=== PATIENT | female | born 2000 | race Two or more races ===

== ENCOUNTER → 2020-06-02 12:57 | Outpatient (BNVA) | payer MEDICAID, SELFPAY | PROVIDERS: PCP Pediatrics; Referring Provider Pediatrics; Visit Provider Obstetrics & Gynecology | DX: Z76.89 Persons encountering health services in other specified circumstances (principal) ==

== ENCOUNTER 2020-06-02 13:40 | Emergency (ER) | payer MEDICAID, SELFPAY ==
[2020-06-02 13:59] VITALS: BP 126/77; PULSE 72; RESP 16; TEMP 36.7; O2SAT 100; BMI 36.6
[2020-06-02 14:00] VITALS: BP 122/69; PULSE 62; RESP 14; O2SAT 100
--- NOTE | 2020-06-02 14:37 | US_ITS ---
EXAMINATION: US OBSTETRICAL ULTRASOUND CLINICAL INFORMATION: Vaginal bleeding. Early . COMPARISON: Obstetrical ultrasound 04/18/2020. TECHNIQUE: Ultrasound of the maternal pelvis is performed using transabdominal transducer. M-mode Doppler is also performed. Patient declined imaging with transvaginal transducer. FINDINGS: There is a single intrauterine gestational sac with visible embryo. Spontaneous motion demonstrated. Normal uniform posterior placenta. No visible placental hemorrhage/hematoma. cardiac activity 146 bpm. MATERNAL ADNEXA: The right maternal ovary measures 3.1 x 2.1 x 2.4 cm. The left maternal ovary measures 3.0 x 1.9 x 2.1 cm. No adnexal mass. No maternal pelvic ascites. US/US OB limited IMPRESSION: 1. Single intrauterine gestation with unremarkable posterior placenta. No hematoma. 2. Spontaneous motion. cardiac activity 146 beats per minute. 3. No maternal adnexal mass or pelvic ascites.
--- NOTE | 2020-06-02 14:39 | ED_ITS ---
HPI - General Chief complaint: Vaginal Bleeding Stated complaint: spotting - 13wks preg Time Seen by Provider: 06/02/20 14:08 Source: patient Mode of arrival: ambulatory Limitations: no limitations History of Present Illness HPI Narrative: patient comes to the emergency room complaining vaginal spotting. Patient states she is a at 13 weeks and half of gestational age. Patient states last night she noticed vaginal spotting which continued until this morning. Patient denies any recent sexual activity. Patient complaining mild cramping this morning which self-resolved. Patient was supposed to have an OB appointment today, however, she did not have an OB intake prior to this visit, therefore she was not seen in her office visit was postponed. Related Data Allergies Allergy/AdvReac Type Severity Reaction Status Date / Time No Known Allergies Allergy Verified 06/02/20 13:59 [No Known Allergies*] Review of Systems Review of Systems: Constitutional : No Weight loss, No Fever, No Chills, No Night Sweats, No Fatigue, No Malaise ENT/Mouth : No Hearing loss, No Ear Pain, No Nasal Congestion, No Sinus Pain, No Hoarseness, No sore throat, No Rhinorrhea, No Swallowing Difficulty Eyes: No Eye Pain, No Swelling, No Redness, No Foreign Body, No Discharge, No Vision Changes Cardiovascular : No Chest Pain, No SOB, No Dyspnea on Exertion, No Orthopnea, No Edema, No Palpitations Respiratory : No Cough, No Sputum, No Wheezing, No Smoke Exposure, No Dyspnea Gastrointestinal : One episode of vomiting, No Diarrhea, No Constipation, No abdominal Pain, No Hematochezia, No Melena Genitourinary : vaginal spotting No Dysuria, No Urinary Frequency, No Hematuria, No Urinary Incontinence, No Urgency, No Flank Pain, No Urinary Flow Changes, No Hesitancy Musculoskeletal : No joint pain, No Myalgias, No Joint Swelling Skin : No Skin Lesions, No rash Neuro : No Weakness, No Numbness, No Paresthesias, No Loss of Consciousness, No Dizziness, No Headache Psych : No Anxiety/Panic, No Depression, No SI/HI/AH/VH, No Social Issues, Heme/Lymph: No Bruising, No Bleeding,No Lymphadenopathy Endocrine : No Polyuria, No Polydipsia, No Temperature Intolerance PMFSH Past Medical History Medical History ADHD Asthma Social History Social History (System 05/28/20 @ 08:15 by Marisel Peoples) Smoking Status: Never smoker Use of substances other than those prescribed or required for medical reasons: No Advance Directives: No Advance Directives Information Provided: No Physical Exam Vital Signs: Vital Signs: Vital Signs Temp Pulse Resp BP Pulse Ox 06/02/20 16:00 58 16 113/61 99 06/02/20 14:00 62 14 122/69 100 06/02/20 13:59 98.1 F 72 16 126/77 100 Body Mass Index 36.6 Appearance: Alert. Oriented X3. No acute distress. Eyes: Pupils equal, round and reactive to light. ENT: Pharynx normal. Neck: Normal inspection. Neck supple. No lymph nodes noted. No crepitus CVS: Normal heart rate and rhythm. Pulses normal. Normal S1 and S2 Respiratory: No respiratory distress. Breath sounds normal. No Wheezing. No rales Abdomen: Soft and nontender. No rigidity. No distention. good BS x4 : Cervical exam closed, no blood present Skin: Skin warm and dry. Normal skin color. Normal skin turgor. Extremities: No lower extremity edema. No lower extremity edema. No Lacerations. No Rash Neuro: Oriented X 3. No motor deficit. No sensory deficit. Moving all extermities. No slurred speech. MDM - OB/Uterine Contractions MDM Narrative Medical decision making narrative: I discussed with the patient that given that she had spotting yesterday, this is considered a threatened . Lab Data Result diagrams: 06/02/20 15:22 06/02/20 15:22 Labs: Lab Results 06/02/20 06/02/20 06/02/20 Range/Units 15:22 15:22 15:35 WBC 11.3 H (4.8-10.8) X10*3/uL RBC 4.05 L (4.20-5.50) X10*6/uL Hgb 12.3 (12.0-16.0) g/dl Hct 36.3 L (37-47) % MCV 89.6 (80-98) fL MCH 30.4 (27.0-33.0) pg MCHC 33.9 (31.0-35.0) g/dl RDW 13.1 (11.0-16.0) % Plt Count 280 (160-400) X10*3/uL MPV 10.3 (9.4-12.3) fL Immature Gran % (Auto) 0.5 H (0.0-0.4) % Neut % (Auto) 77.5 H (45-73) % Lymph % (Auto) 13.7 L (20-40) % [place] % (Auto) 4.9 (2-11) % Eos % (Auto) 2.9 (0-4) % Baso % (Auto) 0.5 (0-2) % Lymph # (Auto) 1.6 (1.2-4.9) X10*3/uL [place] # (Auto) 0.6 (0.1-1.2) X10*3/uL Eos # (Auto) 0.3 (0.0-0.4) X10*3/uL Baso # (Auto) 0.1 (0.0-0.2) X10*3/uL Abs Immat Gran (auto) 0.06 H (0.00-0.03) X10*3/uL Absolute Neuts (auto) 8.8 H (2.0-8.3) X10*3/uL Absolute Nucleated RBC 0.000 (0.0-0.012) X10*3/uL Nucleated RBC % (auto) 0.0 (0.0-0.2) /100WBC Sodium 134 L (135-145) mmol/L Potassium 5.1 (3.3-5.1) mmol/l Chloride 104 (96-108) mmol/L Carbon Dioxide 24 (22-29) mmol/L Anion Gap 11 L (12-20) BUN 14 (9-16) mg/dL Creatinine 0.68 (0.5-1.4) mg/dL Estim Creat Clear Calc 137.0 Estimated GFR > 60 Random Glucose 83 (60-115) mg/dL Calcium 8.5 (8.4-10.2) mg/dL Total Bilirubin 0.4 (0.0-1.0) mg/dL Direct Bilirubin < 0.2 (0.0-0.5) mg/dL AST 11 (5-31) U/L ALT 6 (0-31) U/L Alkaline Phosphatase 38 L (39-117) U/L Total Protein 5.9 L (6.5-8.0) g/dL Albumin 3.4 L (3.5-5.0) g/dL Urine Color YELLOW Urine Appearance CLEAR Urine pH 6.0 (5.0-8.0) Ur Specific [place] 1.010 (1.005-1.025) Urine Protein NEG (NEG-TRACE) MG/DL Urine Glucose (UA) NEG (NEG) MG/DL Urine Ketones NEG (NEG) MG/DL Urine Blood NEG (NEG) Urine Nitrite NEG (NEG) Ur Leukocyte Esterase NEG (NEG) Imaging Data US - abdomen: Radiologist's impression: There is a single intrauterine gestational sac with visible embryo. Spontaneous motion demonstrated. Normal uniform posterior placenta. No visible placental hemorrhage/hematoma. cardiac activity 146 bpm. MATERNAL ADNEXA: The right maternal ovary measures 3.1 x 2.1 x 2.4 cm. The left maternal ovary measures 3.0 x 1.9 x 2.1 cm. No adnexal mass. No maternal pelvic ascites. US/US OB limited IMPRESSION: 1. Single intrauterine gestation with unremarkable posterior placenta. No hematoma. 2. Spontaneous motion. cardiac activity 146 beats per minute. 3. No maternal adnexal mass or pelvic ascites. Discharge Plan Discharge Clinical Impression: Threatened Patient Disposition: Home, Self-Care Instructions: Threatened Miscarriage (ED) Additional Instructions: please call OBGYN to schedule an appointment Please follow-up with your primary care physician tomorrow. If you have any worsening or new symptoms, please return to the emergency room or call 911
--- NOTE | 2020-06-02 15:23 | PC.NURSE ---
Bedside ultrasound at this time
--- NOTE | 2020-06-02 15:23 | PC.NURSE ---
No quantatative blood loss at this time to calculate pt just reports pink tinge on sanitary pad this morning
[2020-06-02 15:44] LABS: MANUAL DIFF FLAG NO
[2020-06-02 15:47] LABS: Basophils Absolute Auto 0.1 X10*3/uL (0.0-0.2); Basophils Percent Auto 0.5 % (0-2); Eosinophils Absolute Auto 0.3 X10*3/uL (0.0-0.4); Eosinophils Percent Auto 2.9 % (0-4); Hematocrit 36.3 % (37-47); Hemoglobin 12.3 g/dl (12.0-16.0); Imm Gran Abs Auto 0.06 X10*3/uL (0.00-0.03); Imm Gran Pct Auto 0.5 % (0.0-0.4); Lymphocytes Absolute Auto 1.6 X10*3/uL (1.2-4.9); Lymphocytes Percent Auto 13.7 % (20-40); Mean Corpuscular HGB Conc 33.9 g/dl (31.0-35.0); Mean Corpuscular Hemoglobin 30.4 pg (27.0-33.0); Mean Corpuscular Volume 89.6 fL (80-98); Mean Platelet Volume 10.3 fL (9.4-12.3); Monocytes Absolute Auto 0.6 X10*3/uL (0.1-1.2); Monocytes Percent Auto 4.9 % (2-11); Neutrophils Absolute Auto 8.8 X10*3/uL (2.0-8.3); Neutrophils Percent Auto 77.5 % (45-73); Platelet Count 280 X10*3/uL (160-400); Red Blood Count 4.05 X10*6/uL (4.20-5.50); Red Cell Distribution Width 13.1 % (11.0-16.0); White Blood Count 11.3 X10*3/uL (4.8-10.8)
[2020-06-02 15:50] LABS: Glucose Urine UA NEG (NEG); Leukocyte Esterase Urine NEG (NEG); Nitrite Urine NEG (NEG); Urine Blood NEG (NEG); Urine Ketones NEG (NEG); Urine Protein NEG (NEG-TRACE)
[2020-06-02 15:51] LABS: Appearance Urine CLEAR; Color Urine YELLOW
[2020-06-02 16:00] VITALS: BP 113/61; PULSE 58; RESP 16; O2SAT 99
[2020-06-02 16:19] LABS: Alanine Aminotransferase 6 U/L (0-31); Albumin Level 3.4 g/dL (3.5-5.0); Alkaline Phosphatase 38 U/L (39-117); Anion Gap 11 (12-20); Aspartate Amino Transferase 11 U/L (5-31); Bilirubin Direct < 0.2 mg/dL (0.0-0.5); Bilirubin Total 0.4 mg/dL (0.0-1.0); Blood Urea Nitrogen 14 mg/dL (9-16); Calcium 8.5 mg/dL (8.4-10.2); Carbon Dioxide 24 mmol/L (22-29); Chloride 104 mmol/L (96-108); Estimated Glomerular Filt Rate > 60; Glucose Random 83 mg/dL (60-115); Potassium 5.1 mmol/l (3.3-5.1); Sodium 134 mmol/L (135-145); Total Protein 5.9 g/dL (6.5-8.0)
== END 2020-06-02 17:52 | disposition home or self-care (01) ==
PROVIDERS: Emergency Provider Emergency Medicine; PCP Pediatrics
DX: O20.0 Threatened abortion (principal)
CPT/HCPCS: 36415; 76815; 80048; 80076; 81003; 85025; 99284

== ENCOUNTER → 2020-06-08 13:54 | Outpatient (BNVA) | payer MEDICAID, SELFPAY | PROVIDERS: PCP Pediatrics; Referring Provider Pediatrics | DX: Z76.89 Persons encountering health services in other specified circumstances (principal) ==

== ENCOUNTER 2020-06-11 08:20 | Emergency (ER) | payer MEDICAID, SELFPAY ==
--- NOTE | 2020-06-11 08:31 | ED_ITS ---
HPI - Female Genitourinary General Chief complaint: Vaginal Bleeding Stated complaint: vaginal bleeding 15 weeks Time Seen by Provider: 06/11/20 08:31 Source: patient Mode of arrival: ambulatory Limitations: no limitations History of Present Illness MD elicited complaint: vaginal bleeding Pertinent past history: other (15 weeks ) Onset (ago): minute(s) (20 minutes [employer]) Location of symptoms: pelvis Severity: moderate Quality of pain: other (has no pain) Vaginal bleeding: bright red, clots (2) and # pads per hour (1) Exacerbating factors: none Relieving factors: none Associated symptoms: denies other symptoms Treatment prior to arrival: none Sexual activity: Yes Patient : Yes Related Data : 3 Para: 2 Allergies Allergy/AdvReac Type Severity Reaction Status Date / Time No Known Allergies Allergy Verified 06/02/20 13:59 [No Known Allergies*] Review of Systems Review of Systems: Constitutional : No Fever, No Chills ENT/Mouth : No sore throat, No Rhinorrhea Eyes: No Eye Pain, No Redness Cardiovascular : No Chest Pain, No SOB Respiratory : No Cough, No Sputum, No Wheezing Gastrointestinal : positive Nausea, No Vomiting, No Diarrhea, no abdominal pain, Genitourinary : positive irregular bleeding, No Dysuria, No Urinary Frequency, no pelvic pain Musculoskeletal : No Myalgias Skin : No rash Neuro : No Weakness, No Headache Psych : No Anxiety/Panic, No Depression Heme/Lymph: No bruising, No Lymphadenopathy Endocrine : No Polyuria, No Polydipsia All other systems reviewed and are negative PMFSH Past Medical History Medical History ADHD Asthma Surgical History History of ear surgery : 3 Para: 2 Family History Family History (Updated 06/08/20 @ 14:53 by Sharlene Villasenor LPN) Mother Hx of seizure disorder History of bipolar disorder Father No problems noted. Brother No problems noted. Brother No problems noted. Social History Social History Household Members: Children Smoking Status: Never smoker Smoked in Last 30 Days: No Use of substances other than those prescribed or required for medical reasons: No Substance Use Type: Marijuana Advance Directives: No Advance Directives Information Provided: No Physical Exam 2 Vital Signs: Vital Signs: Last Vital Signs Temp 98.2 F 06/11/20 11:16 Pulse 58 06/11/20 11:16 Resp 16 06/11/20 11:16 BP 107/57 L 06/11/20 11:16 Pulse Ox 100 06/11/20 11:16 Body Mass Index 34.4 Appearance: Alert. Oriented X3. No acute distress. Anxious, tearful Eyes: Pupils equal, round and reactive to light. ENT: Pharynx normal. Neck: Normal inspection. Neck supple. CVS: Normal heart rate and rhythm. Pulses normal. Respiratory: No respiratory distress. Breath sounds normal. Abdomen: Soft and nontender. : brb via cervix, manual exam open to fingertip, scant blood on pad Skin: Skin warm and dry. Normal skin color. Normal skin turgor. Extremities: No lower extremity edema. No calf ttp Neuro: Oriented X 3. No motor deficit. No sensory deficit. Course Course Course Narrative: patient delay in US no significant bleeding, delay in US due to no official read, O POS bleeding has resolved, patient given US findings, told to do pelvic rest no heavy lifting, no intercourse needs to see OB, Dr. Solis aware will follow up with outpatient MDM - Female Genitourinary MDM Narrative Medical decision making narrative: 19 yo female 15 weeks here with vaginal bleeding has no cramping, will need labs, Rh status, IVF, US to evaluate , she is seen by our midwives Lab Data Result diagrams: 06/11/20 09:13 06/11/20 11:23 Labs: Lab Results 06/11/20 06/11/20 06/11/20 Range/Units 09:13 09:13 09:13 WBC 12.4 H (4.8-10.8) X10*3/uL RBC 4.10 L (4.20-5.50) X10*6/uL Hgb 12.6 (12.0-16.0) g/dl Hct 37.5 (37-47) % MCV 91.5 (80-98) fL MCH 30.7 (27.0-33.0) pg MCHC 33.6 (31.0-35.0) g/dl RDW 13.4 (11.0-16.0) % Plt Count 279 (160-400) X10*3/uL MPV 10.2 (9.4-12.3) fL Immature Gran % (Auto) 1.0 H (0.0-0.4) % Neut % (Auto) 72.6 (45-73) % Lymph % (Auto) 16.0 L (20-40) % [place] % (Auto) 5.6 (2-11) % Eos % (Auto) 4.2 H (0-4) % Baso % (Auto) 0.6 (0-2) % Lymph # (Auto) 2.0 (1.2-4.9) X10*3/uL [place] # (Auto) 0.7 (0.1-1.2) X10*3/uL Eos # (Auto) 0.5 H (0.0-0.4) X10*3/uL Baso # (Auto) 0.1 (0.0-0.2) X10*3/uL Abs Immat Gran (auto) 0.12 H (0.00-0.03) X10*3/uL Absolute Neuts (auto) 9.0 H (2.0-8.3) X10*3/uL Absolute Nucleated RBC 0.000 (0.0-0.012) X10*3/uL Nucleated RBC % (auto) 0.0 (0.0-0.2) /100WBC PT 10.4 L (10.8-13.0) SEC INR 0.9 (0.9-1.1) APTT 32.8 (24.1-38.0) SEC Sodium Cancelled Potassium Cancelled Chloride Cancelled Carbon Dioxide Cancelled Anion Gap Cancelled BUN Cancelled Creatinine Cancelled Estim Creat Clear Calc Cancelled Estimated GFR Cancelled Random Glucose Cancelled Calcium Cancelled Total Bilirubin Cancelled Direct Bilirubin Cancelled AST Cancelled ALT Cancelled Alkaline Phosphatase Cancelled Total Protein Cancelled Albumin Cancelled Beta HCG, Quant Cancelled 06/11/20 06/11/20 Range/Units 11:23 11:23 WBC (4.8-10.8) X10*3/uL RBC (4.20-5.50) X10*6/uL Hgb (12.0-16.0) g/dl Hct (37-47) % MCV (80-98) fL MCH (27.0-33.0) pg MCHC (31.0-35.0) g/dl RDW (11.0-16.0) % Plt Count (160-400) X10*3/uL MPV (9.4-12.3) fL Immature Gran % (Auto) (0.0-0.4) % Neut % (Auto) (45-73) % Lymph % (Auto) (20-40) % [place] % (Auto) (2-11) % Eos % (Auto) (0-4) % Baso % (Auto) (0-2) % Lymph # (Auto) (1.2-4.9) X10*3/uL [place] # (Auto) (0.1-1.2) X10*3/uL Eos # (Auto) (0.0-0.4) X10*3/uL Baso # (Auto) (0.0-0.2) X10*3/uL Abs Immat Gran (auto) (0.00-0.03) X10*3/uL Absolute Neuts (auto) (2.0-8.3) X10*3/uL Absolute Nucleated RBC (0.0-0.012) X10*3/uL Nucleated RBC % (auto) (0.0-0.2) /100WBC PT (10.8-13.0) SEC INR (0.9-1.1) APTT (24.1-38.0) SEC Sodium 136 Potassium 4.7 Chloride 105 Carbon Dioxide 25 Anion Gap 11 L BUN 11 Creatinine 0.69 Estim Creat Clear Calc 140.9 Estimated GFR > 60 Random Glucose 78 Calcium 7.5 L D Total Bilirubin 0.2 Direct Bilirubin < 0.2 AST 11 ALT < 6 Alkaline Phosphatase 40 Total Protein 5.6 L Albumin 3.2 L Beta HCG, Quant [id number] Discharge Plan Discharge Clinical Impression: Vaginal bleeding Placenta previa Qualifiers: Trimester: second trimester Qualified Code(s): O44.02 - Complete placenta previa NOS or without hemorrhage, second trimester Patient Disposition: Home, Self-Care Instructions: Placenta Previa (ED) Additional Instructions: return to ED for any worsening symptoms or concerns PELVIC REST, NO HEAVY LIFTING OVER 10LBS UNTIL RELEASED, NO SEXUAL INTERCOURSE OF VAGINAL PENETRATION UNTIL RELEASED BY YOUR OBGYN Referrals: Ciera Fisher CNM [Certified Nurse Drum Operator] - 1 day (CALL SATURDAY TO FOLLOW UP)
--- NOTE | 2020-06-11 08:54 | US_ITS ---
EXAMINATION: US , GREATER THAN 14 WEEKS CLINICAL INFORMATION: 15 weeks . Vaginal bleeding COMPARISON: Report of a study 06/02/20 TECHNIQUE: Transcutaneous limited obstetrical ultrasound. FINDINGS: There is a live single intrauterine gestation in variable but predominantly breech presentation. There is normal amniotic fluid volume. The gestational sac contour is smooth. Cardiac activity was present. Somatic activity was present. There is no suspicious abnormality in the region of the cervix. The cervix measures approximately 3.6 cm. The uterine contour is smooth. The placenta is posterior. The placenta extends close to the internal cervical os. There are some anechoic spaces related to the lower margin of the placenta. On the cine loop recording there appears to be mobile echoes suggesting slow flowing blood. No focal abnormality of the myometrium. No large adnexal mass. The right ovary measures approximately 2.5 x 1.3 x 2.0 cm. The left ovary measures approximately 2.2 x 1.7 x 1.8 cm. Measurements include: biometrics were not performed survey was not performed The best estimated gestational age is 15 weeks 0 days based upon previous dating. This yields an EDC of 12/03/20 cardiac activity was regular at 147 bpm. There is no significant free pelvic fluid. US/US OB limited IMPRESSION: There is a live single intrauterine gestation. The best estimated gestational age based on previous dating is 15 weeks 0 days. The lower placental margin appears hypervascular and extends close to the internal cervical os. There is no localized retroplacental collection or fluid within the cervical canal. The patient should be managed on the basis of the clinical exam and history. Depending upon clinical circumstances a short interval follow-up including transvaginal assessment of the placental margin should be considered.
[2020-06-11 09:07] VITALS: BP 119/73; PULSE 59; RESP 18; TEMP 36.7; O2SAT 100; BMI 34.4
[2020-06-11] MEDS: 0.9 % Sodium Chloride 1,000 ML 999 ML IVCONT (09:15)
[2020-06-11 09:19] LABS: Basophils Absolute Auto 0.1 X10*3/uL (0.0-0.2); Basophils Percent Auto 0.6 % (0-2); Eosinophils Absolute Auto 0.5 X10*3/uL (0.0-0.4); Eosinophils Percent Auto 4.2 % (0-4); Hematocrit 37.5 % (37-47); Hemoglobin 12.6 g/dl (12.0-16.0); Imm Gran Abs Auto 0.12 X10*3/uL (0.00-0.03); MANUAL DIFF FLAG NO; Mean Corpuscular HGB Conc 33.6 g/dl (31.0-35.0); Mean Corpuscular Hemoglobin 30.7 pg (27.0-33.0); Mean Corpuscular Volume 91.5 fL (80-98); Mean Platelet Volume 10.2 fL (9.4-12.3); Monocytes Absolute Auto 0.7 X10*3/uL (0.1-1.2); Monocytes Percent Auto 5.6 % (2-11); Neutrophils Percent Auto 72.6 % (45-73); Platelet Count 279 X10*3/uL (160-400); Red Cell Distribution Width 13.4 % (11.0-16.0); White Blood Count 12.4 X10*3/uL (4.8-10.8)
[2020-06-11 09:29] LABS: INTERNATIONAL NORM RATIO 0.9 (0.9-1.1); Prothrombin Time 10.4 SEC (10.8-13.0)
[2020-06-11 09:31] LABS: Partial Thromboplastin Time 32.8 SEC (24.1-38.0)
[2020-06-11 10:14] VITALS: BP 108/45; PULSE 60
--- NOTE | 2020-06-11 10:15 | PC.NURSE ---
PT MOVED FROM BED 19 TO BED 7 AFTER US
[2020-06-11 11:16] VITALS: BP 107/57; PULSE 58; RESP 16; TEMP 36.8; O2SAT 100
--- NOTE | 2020-06-11 11:18 | PC.NURSE ---
Pt calm and cooperative. Panaca,warn, and dry. VSS. DEnies pain. She reports feeling slightly dizzy at times since but denies dizziness at present. Instructed to call if she needs to get OOB. IVF administered. Labs re-drawn due tp hemolizations
[2020-06-11 11:58] LABS: Anion Gap 11 (12-20); Blood Urea Nitrogen 11 mg/dL (9-16); Calcium 7.5 mg/dL (8.4-10.2); Carbon Dioxide 25 mmol/L (22-29); Chloride 105 mmol/L (96-108); Creatinine Clr Calc Pharmacy 140.9; Estimated Glomerular Filt Rate > 60; Glucose Random 78 mg/dL (60-115); Potassium 4.7 mmol/l (3.3-5.1); Sodium 136 mmol/L (135-145)
[2020-06-11 12:04] LABS: Alanine Aminotransferase < 6 U/L (0-31); Albumin Level 3.2 g/dL (3.5-5.0); Alkaline Phosphatase 40 U/L (39-117); Aspartate Amino Transferase 11 U/L (5-31); Bilirubin Direct < 0.2 mg/dL (0.0-0.5); Bilirubin Total 0.2 mg/dL (0.0-1.0); Total Protein 5.6 g/dL (6.5-8.0)
[2020-06-11 12:41] LABS: HCG Quantitative 31903 mIU/mL
[2020-06-11 13:08] VITALS: BP 116/62; PULSE 61; RESP 17; O2SAT 100
== END 2020-06-11 13:14 | disposition home or self-care (01) ==
PROVIDERS: Emergency Provider Emergency Medicine
DX: O44.02 Complete placenta previa NOS or without hemorrhage, second trimester (principal); Z3A.15 15 weeks gestation of pregnancy
CPT/HCPCS: 36415; 76815; 80048; 80076; 84702; 85025; 85610; 85730; 86900; 86901; 96360; 99284

== ENCOUNTER 2020-06-15 13:11 | Outpatient (REF) | payer MEDICAID, SELFPAY ==
[2020-06-15 16:09] LABS: MANUAL DIFF FLAG NO
[2020-06-15 16:15] LABS: Basophils Absolute Auto 0.1 X10*3/uL (0.0-0.2); Basophils Percent Auto 0.4 % (0-2); Eosinophils Absolute Auto 0.4 X10*3/uL (0.0-0.4); Eosinophils Percent Auto 3.2 % (0-4); Hematocrit 34.1 % (37-47); Hemoglobin 11.6 g/dl (12.0-16.0); Imm Gran Abs Auto 0.08 X10*3/uL (0.00-0.03); Imm Gran Pct Auto 0.7 % (0.0-0.4); Lymphocytes Absolute Auto 1.3 X10*3/uL (1.2-4.9); Lymphocytes Percent Auto 11.4 % (20-40); Mean Corpuscular Hemoglobin 30.7 pg (27.0-33.0); Mean Corpuscular Volume 90.2 fL (80-98); Mean Platelet Volume 10.9 fL (9.4-12.3); Monocytes Absolute Auto 0.7 X10*3/uL (0.1-1.2); Monocytes Percent Auto 6.4 % (2-11); Neutrophils Absolute Auto 8.9 X10*3/uL (2.0-8.3); Neutrophils Percent Auto 77.9 % (45-73); Platelet Count 270 X10*3/uL (160-400); Red Blood Count 3.78 X10*6/uL (4.20-5.50); Red Cell Distribution Width 13.8 % (11.0-16.0); White Blood Count 11.4 X10*3/uL (4.8-10.8)
[2020-06-15 16:45] LABS: Amphetamine Screen Urine Not Detected (Not Detect); Barbiturates, Urine Not Detected (Not Detect); Benzodiazepines Screen Urine Not Detected (Not Detect); Cannabinoid Screen Urine POSITIVE (Not Detect); Cocaine Screen Urine Not Detected (Not Detect); Opiate Screen Urine Not Detected (Not Detect); Phencyclidine Screen Urine Not Detected (Not Detect)
[2020-06-15 17:03] LABS: Syphilis Screen Nonreactive (Nonreactive)
[2020-06-16 08:39] LABS: HBsAGNum1 0.62 S/CO (0.00-0.99); Hepatitis B Surface Antigen Negative (Negative); ~HepC Num1 0.09 S/CO (0.00-0.79); ~Hepatitis C Antibody Nonreactive (Nonreactive)
[2020-06-16 09:00] LABS: HIV AB/AG Nonreactive (Nonreactive); HIV Num 1 0.08 S/CO (0.00-0.99)
[2020-06-16 09:37] LABS: Rubella IgG Antibody 1.85 index
== END 2020-06-15 13:12 | disposition home or self-care (01) ==
LOC: HO.LAB 13:11
PROVIDERS: Referring Provider Advanced Practice Midwife; Visit Provider Advanced Practice Midwife
DX: O44.02 Complete placenta previa NOS or without hemorrhage, second trimester (principal); Z3A.15 15 weeks gestation of pregnancy
CPT/HCPCS: 36415; 80307; 85025; 86762; 86780; 86787; 86803; 86850; 86900; 86901; 87086; 87340; 87389

== ENCOUNTER 2020-06-15 17:12 | Outpatient (REF) | payer MEDICAID, SELFPAY ==
[2020-06-16 03:01] LABS: CT PCR NOT DETECTED (Not Detect.); NG PCR NOT DETECTED (Not Detect.)
[2020-06-16 08:19] LABS: BV Int Neg Control Negative (Negative); BV Int Pos Control Positive (Positive)
== END 2020-06-15 17:13 | disposition home or self-care (01) ==
LOC: HO.LNP 17:12
PROVIDERS: Visit Provider Advanced Practice Midwife
DX: O44.00 Complete placenta previa NOS or without hemorrhage, unspecified trimester (principal)
CPT/HCPCS: 87480; 87491; 87510; 87591; 87660

== ENCOUNTER 2020-06-24 13:54 | Outpatient (REF) | payer MEDICAID, SELFPAY ==
--- NOTE | 2020-06-24 14:03 | US_ITS ---
EXAMINATION: OBSTETRICAL ULTRASOUND, Follow up HISTORY: 19-year-old at the 16.6 weeks of gestation Rule out placenta previa COMPARISON: 06/11/2020 TECHNIQUE: Real time transabdominal imaging with color and M-mode Doppler. Transvaginal ultrasound was performed using an endovaginal probe. PRESENTATION: Vertex PLACENTA LOCATION: Posterior without previa AMNIOTIC FLUID: Normal MEASUREMENTS: 1. Biparietal Diameter: 3.6 cm; 17.0 wks 2. Head Circumference: 13.5 cm; 17.0 wks 3. Abdominal Circumference: 11.1 cm; 17.0 wks 4. Femur Length: 2.4 cm; 17.2 wks 5. Heart Rate: 149 beats per minute WEIGHT: Estimated weight is 180 grams (0 lbs 6 oz) -- 57 %. survey was not attempted due to early gestational age. The gender is female. Patient is aware. 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 Placenta is 4.3 cm away from the internal os. GESTATIONAL AGE: 1. Established GA: 16.6 wks 2. GA from AUA: 17.1 wks ESTIMATED DATE OF DELIVERY: 1. Established SHIRA: 12/03/2020 2. SHIRA from AUA: 12/01/2020 US/US OB transvaginal IMPRESSION: 1. A single fetus with appropriate interval growth. 2. The placenta is posterior without evidence of previa. The inferior edge is 4.3 cm away from the internal loss. 3. Uterine synechiae in the lower segment close to the cervix. I reviewed today's ultrasound findings and gave her reassurance. There is no evidence of placenta previa. In addition I have informed her that the placenta will not migrate down toward the cervix during . If anything we will continue to move further away from the cervix. She had light spotting in early June. Currently denies vaginal bleeding or contractions. Uterine synechiae was noted in the lower uterine segment near the cervix. This is been associated with benign obstetrical outcome. RECOMMENDATIONS: 1. She is to follow-up in approximately 3 weeks for survey (scheduled). Thank you very much for this referral. Visiting time 20 minutes. Majority of this visit was spent reviewing the ultrasound findings as well as her care.
== END 2020-06-24 13:55 | disposition home or self-care (01) ==
LOC: HO.US 13:54
PROVIDERS: PCP Pediatrics; Visit Provider Advanced Practice Midwife
DX: O44.00 Complete placenta previa NOS or without hemorrhage, unspecified trimester (principal); Z3A.00 Weeks of gestation of pregnancy not specified
CPT/HCPCS: 76816; 76817

== ENCOUNTER → 2020-07-22 14:02 | Outpatient (BNVA) | payer MEDICAID, SELFPAY | PROVIDERS: Visit Provider Advanced Practice Midwife | DX: Z76.89 Persons encountering health services in other specified circumstances (principal) ==

== ENCOUNTER 2020-07-22 15:04 | Outpatient (REF) | payer MEDICAID, SELFPAY | END 2020-07-22 15:05 | disposition home or self-care (01) | LOC: HO.US 15:04 | PROVIDERS: Visit Provider Advanced Practice Midwife | DX: Z34.92 Encounter for supervision of normal pregnancy, unspecified, second trimester (principal); Z23 Encounter for immunization | CPT/HCPCS: 81003 ==

== ENCOUNTER → 2020-08-23 15:37 | Outpatient (BNVA) | payer MEDICAID, SELFPAY | PROVIDERS: Visit Provider Advanced Practice Midwife | DX: Z34.80 Encounter for supervision of other normal pregnancy, unspecified trimester (principal) | CPT/HCPCS: 81003; 99212 ==

== ENCOUNTER → 2020-10-07 11:38 | Outpatient (BNVA) | payer MEDICAID, SELFPAY | PROVIDERS: Visit Provider Advanced Practice Midwife | DX: O99.340 Other mental disorders complicating pregnancy, unspecified trimester (principal); F32.9 Major depressive disorder, single episode, unspecified; Z3A.31 31 weeks gestation of pregnancy | CPT/HCPCS: 81003; 99212 ==

== ENCOUNTER 2020-10-14 13:59 | Outpatient (REF) | payer MEDICAID, SELFPAY ==
--- NOTE | ~2020-10-14 | US_ITS ---
EXAMINATION: OBSTETRICAL ULTRASOUND, Follow up HISTORY: 20-year-old at 32.6 weeks of gestation High BMI Size date discrepancy COMPARISON: 06/24/2020 TECHNIQUE: Real time transabdominal imaging with color and M-mode Doppler. PRESENTATION: Vertex PLACENTA LOCATION: Posterior without previa AMNIOTIC FLUID: [place] 11.5 cm MEASUREMENTS: 1. Biparietal Diameter: 8.1 cm; 32.5 wks 2. Head Circumference: 29.4 cm; 32.4 wks 3. Abdominal Circumference: 27.3 cm; 31.3 wks 4. Femur Length: 6.1 cm; 31.6 wks 5. Heart Rate: 142 beats per minute WEIGHT: EFW: 1825 grams (4 lbs 0 oz) -- 13 %. BIOPHYSICAL PROFILE: Motion: 2 Tone: 2 Breathin Amniotic Fluid: 2 Total score: 8/8 Doppler evaluation of the umbilical artery showed SD ratio of 2.7. GESTATIONAL AGE: 1. Established GA: 32.6 wks 2. GA from AUA: 32.1 wks ESTIMATED DATE OF DELIVERY: 1. Established SHIRA: 12/03/2020 2. SHIRA from AUA: 12/08/2020 US/US OB follow up IMPRESSION: 1. A single active fetus is in vertex presentation 2. Size equals dates, EFW corresponds to 13th percentile 3. Reassuring biophysical profile 4. Normal SD ratio in the UA I reviewed today's ultrasound findings and discussed the limitations of ultrasound and estimating weights. Majority of the fetuses whose EFW corresponds to approximately 10th percentile are appropriately grown fetuses who are growing to their full genetic potential. Approximately 20-30% of these fetuses may be experiencing placental insufficiency. Often it can be difficult to distinguish the 2 in utero. I recommended that she follow-up in 2 weeks for repeat growth evaluation. Depending on the findings, closer surveillance may be indicated. Of note she has 2 children who is weights were in the low 6 pounds range. Thank you very much for this referral. Total time 20 (3,12, 5) minutes. The time spent was devoted to counseling the patient about the disease and diagnosis, coordinating care including reviewing her records, pertinent lab data and studies, as well as discussing diagnostic evaluation and workup, plan therapeutic interventions and future disposition of care. This includes any additional research needed to obtain further information in formulating the plan of care of this patient. This note was generated with a voice recognition program. Please excuse any errors which may have been overlooked during my review of this note. Sometimes these errors may affect the content or meaning of a given sentence.
== END 2020-10-14 14:00 | disposition home or self-care (01) ==
LOC: HO.US 13:59
PROVIDERS: Visit Provider Advanced Practice Midwife
DX: O99.210 Obesity complicating pregnancy, unspecified trimester (principal)
CPT/HCPCS: 76816

== ENCOUNTER 2020-11-04 15:03 | Outpatient (REF) | payer MEDICAID, SELFPAY ==
--- NOTE | ~2020-11-04 | US_ITS ---
EXAMINATION: OBSTETRICAL ULTRASOUND, Follow up HISTORY: 20-year-old at the 35.6 weeks of gestation SGA High BMI COMPARISON: 10/14/2020 TECHNIQUE: Real time transabdominal imaging with color and M-mode Doppler. PRESENTATION: Vertex PLACENTA LOCATION: Posterior without previa AMNIOTIC FLUID: ALONSO 10.7 cm MEASUREMENTS: 1. Biparietal Diameter: 8.5 cm; 34.1 wks 2. Head Circumference: 31.5 cm; 35.3 wks 3. Abdominal Circumference: 29.4 cm; 33.3 wks 4. Femur Length: 6.6 cm; 34.1 wks 5. Heart Rate: 129 beats per minute WEIGHT: EFW: 2287 grams (5 lbs 1 oz) -- 8 %. BIOPHYSICAL PROFILE: Motion: 2 Tone: 2 Breathin Amniotic Fluid: 2 Total score: 8/8 GESTATIONAL AGE: 1. Established GA: 35.6 wks 2. GA from AUA: 34.2 wks ESTIMATED DATE OF DELIVERY: 1. Established SHIRA: 12/03/2020 2. SHIRA from AUA: 12/14/2020 US/US OB follow up IMPRESSION: 1. A single active fetus is in vertex presentation 2. Size less than dates, EFW corresponds to 8th percentile 3. Reassuring biophysical profile with normal amniotic fluid index 4. Doppler of the umbilical artery showed SD ratio 3.5. I informed the patient that there has been a slightly less than expected interval growth. However overall the testing is reassuring with the normal SD ratio through the umbilical artery. I reviewed the limitations of ultrasound and estimating weights. She informs me that her first the child had a weight of 5 lbs. 9 oz. at term. I reassured her that majority of the fetuses whose EFW falls less than 10th percentile are constitutionally small but healthy fetuses growing to their full genetic potential. She is scheduled for weekly testing and Doppler evaluation. A follow-up the growth in 2 weeks (scheduled). Thank you very much for this referral. Total time 30 minutes. The time spent was devoted to counseling the patient about the disease and diagnosis, coordinating care including reviewing her records, pertinent lab data and studies, as well as discussing diagnostic evaluation and workup, plan therapeutic interventions and future disposition of care. This includes any additional research needed to obtain further information in formulating the plan of care of this patient. This note was generated with a voice recognition program. Please excuse any errors which may have been overlooked during my review of this note. Sometimes these errors may affect the content or meaning of a given sentence.
--- NOTE | ~2020-11-04 | US_ITS ---
EXAMINATION: OBSTETRICAL ULTRASOUND, Follow up HISTORY: 20-year-old at the 35.6 weeks of gestation SGA High BMI COMPARISON: 10/14/2020 TECHNIQUE: Real time transabdominal imaging with color and M-mode Doppler. PRESENTATION: Vertex PLACENTA LOCATION: Posterior without previa AMNIOTIC FLUID: ALONSO 10.7 cm MEASUREMENTS: 1. Biparietal Diameter: 8.5 cm; 34.1 wks 2. Head Circumference: 31.5 cm; 35.3 wks 3. Abdominal Circumference: 29.4 cm; 33.3 wks 4. Femur Length: 6.6 cm; 34.1 wks 5. Heart Rate: 129 beats per minute WEIGHT: EFW: 2287 grams (5 lbs 1 oz) -- 8 %. BIOPHYSICAL PROFILE: Motion: 2 Tone: 2 Breathin Amniotic Fluid: 2 Total score: 8/8 GESTATIONAL AGE: 1. Established GA: 35.6 wks 2. GA from A: 34.2 wks ESTIMATED DATE OF DELIVERY: 1. Established SHIRA: 12/03/2020 2. [facility] 12[facility]14[facility]2020 US/US OB velocimetry umbilcal art IMPRESSION: 1. A single active fetus is in vertex presentation 2. Size less than dates, EFW corresponds to 8th percentile 3. Reassuring biophysical profile with normal amniotic fluid index 4. Doppler of the umbilical artery showed SD ratio 3.5. I informed the patient that there has been a slightly less than expected interval growth. However overall the testing is reassuring with the normal SD ratio through the umbilical artery. I reviewed the limitations of ultrasound and estimating weights. She informs me that her first the child had a weight of 5 lbs. 9 oz. at term. I reassured her that majority of the fetuses whose EFW falls less than 10th percentile are constitutionally small but healthy fetuses growing to their full genetic potential. She is scheduled for weekly testing and Doppler evaluation. A follow-up the growth in 2 weeks (scheduled). Thank you very much for this referral. Total time 30 minutes. The time spent was devoted to counseling the patient about the disease and diagnosis, coordinating care including reviewing her records, pertinent lab data and studies, as well as discussing diagnostic evaluation and workup, plan therapeutic interventions and future disposition of care. This includes any additional research needed to obtain further information in formulating the plan of care of this patient. This note was generated with a voice recognition program. Please excuse any errors which may have been overlooked during my review of this note. Sometimes these errors may affect the content or meaning of a given sentence.
== END 2020-11-04 15:04 | disposition home or self-care (01) ==
LOC: HO.US 15:03
PROVIDERS: Visit Provider Advanced Practice Midwife
DX: O99.210 Obesity complicating pregnancy, unspecified trimester (principal)
CPT/HCPCS: 76816; 76820

== ENCOUNTER 2020-11-11 15:43 | Outpatient (REF) | payer MEDICAID, SELFPAY ==
--- NOTE | ~2020-11-11 | US_ITS ---
EXAMINATION: OBSTETRICAL ULTRASOUND, Follow up HISTORY: 20-year-old at the 36.6 weeks of gestation growth restriction High BMI COMPARISON: 11/04/2020 TECHNIQUE: Real time transabdominal imaging with color and M-mode Doppler. PRESENTATION: Vertex PLACENTA LOCATION: Posterior without previa AMNIOTIC FLUID: 10.9 cm BIOPHYSICAL PROFILE: Motion: 2 Tone: 2 Breathin Amniotic Fluid: 2 Total score: 8/8 Umbilical artery Doppler showed SD ratio of 2.3. GESTATIONAL AGE: 1. Established GA: 36.6 wks 2. GA from [facility]: N/A wks ESTIMATED DATE OF DELIVERY: 1. Established SHIRA: 12/04/2019 2. SHIRA from [facility]: N/A US/US OB velocimetry umbilical ar IMPRESSION: 1. A single active fetus is in vertex presentation 2. Reassuring biophysical profile with normal amniotic fluid index 3. Normal umbilical artery Doppler SD ratio Thank you very much for this referral. Follow-up is been scheduled for next week. This note was generated with a voice recognition program. Please excuse any errors which may have been overlooked during my review of this note. Sometimes these errors may affect the content or meaning of a given sentence.
--- NOTE | ~2020-11-11 | US_ITS ---
EXAMINATION: OBSTETRICAL ULTRASOUND, Follow up HISTORY: 20-year-old at the 36.6 weeks of gestation growth restriction High BMI COMPARISON: 11/04/2020 TECHNIQUE: Real time transabdominal imaging with color and M-mode Doppler. PRESENTATION: Vertex PLACENTA LOCATION: Posterior without previa AMNIOTIC FLUID: 10.9 cm BIOPHYSICAL PROFILE: Motion: 2 Tone: 2 Breathin Amniotic Fluid: 2 Total score: 8/8 Umbilical artery Doppler showed SD ratio of 2.3. GESTATIONAL AGE: 1. Established GA: 36.6 wks 2. GA from [facility]: N/A wks ESTIMATED DATE OF DELIVERY: 1. Established SHIRA: 12/04/2019 2. SHIRA from [facility]: N/A US/US OB biophysical profile IMPRESSION: 1. A single active fetus is in vertex presentation 2. Reassuring biophysical profile with normal amniotic fluid index 3. Normal umbilical artery Doppler SD ratio Thank you very much for this referral. Follow-up is been scheduled for next week. This note was generated with a voice recognition program. Please excuse any errors which may have been overlooked during my review of this note. Sometimes these errors may affect the content or meaning of a given sentence.
== END 2020-11-11 15:44 | disposition home or self-care (01) ==
LOC: HO.US 15:43
PROVIDERS: Visit Provider Advanced Practice Midwife
DX: O36.5930 Maternal care for other known or suspected poor fetal growth, third trimester, not applicable or unspecified (principal); Z3A.36 36 weeks gestation of pregnancy
CPT/HCPCS: 76819; 76820

== ENCOUNTER → 2020-11-18 10:08 | Outpatient (BNVA) | payer MEDICAID, SELFPAY | PROVIDERS: Visit Provider Obstetrics & Gynecology ==

== ENCOUNTER 2020-11-18 11:17 | Outpatient (REF) | payer MEDICAID, SELFPAY ==
--- NOTE | ~2020-11-18 | US_ITS ---
EXAMINATION: OBSTETRICAL ULTRASOUND, Follow up HISTORY: 20-year-old at the 37.6 weeks of gestation FGR High BMI COMPARISON: 11/11/2020 TECHNIQUE: Real time transabdominal imaging with color and M-mode Doppler. PRESENTATION: Vertex PLACENTA LOCATION: Posterior without previa AMNIOTIC FLUID: ALONSO 13.4 cm MEASUREMENTS: 1. Biparietal Diameter: 8.9 cm; 36.0 wks 2. Head Circumference: 31.9 cm; 36.0 wks 3. Abdominal Circumference: 30.8 cm; 34.6 wks 4. Femur Length: 7.2 cm; 36.5 wks 5. Heart Rate: 155 beats per minute WEIGHT: EFW: 2726 grams (6 lbs 0 oz) -- 12 %. BIOPHYSICAL PROFILE: Motion: 2 Tone: 2 Breathin Amniotic Fluid: 2 Total score: 8/8 Umbilical Doppler showed SD ratio of 2.3 which is within normal limits. GESTATIONAL AGE: 1. Established GA: 37.6 wks 2. GA from [facility]: 35.6 wks ESTIMATED DATE OF DELIVERY: 1. Established SHIRA: 12/03/2020 2. SHIRA from A: 12/17/2020 US/US OB velocimetry umbilical ar IMPRESSION: 1. A single active fetus is in vertex presentation. 2. Size equals dates. Compared to previous exam, there has been appropriate interval growth. 3. Reassuring testing with normal umbilical artery Doppler SD ratio I reviewed today's ultrasound findings and informed her that the interval growth is appropriate. In all likelihood this represents a constitutionally small but healthy fetus who is not experiencing placental insufficiency. testing parameters within normal limits. She informs me that her first 2 children had weights in the 6 pounds range. I recommended that we continue until testing and plan for IOL at approximately 39 weeks of gestation. Thank you very much for this referral. Total time 30 minutes. The time spent was devoted to counseling the patient about the disease and diagnosis, coordinating care including reviewing her records, pertinent lab data and studies, as well as discussing diagnostic evaluation and workup, plan therapeutic interventions and future disposition of care. This includes any additional research needed to obtain further information in formulating the plan of care of this patient. This note was generated with a voice recognition program. Please excuse any errors which may have been overlooked during my review of this note. Sometimes these errors may affect the content or meaning of a given sentence.
--- NOTE | ~2020-11-18 | US_ITS ---
EXAMINATION: OBSTETRICAL ULTRASOUND, Follow up HISTORY: 20-year-old at the 37.6 weeks of gestation FGR High BMI COMPARISON: 11/11/2020 TECHNIQUE: Real time transabdominal imaging with color and M-mode Doppler. PRESENTATION: Vertex PLACENTA LOCATION: Posterior without previa AMNIOTIC FLUID: ALONSO 13.4 cm MEASUREMENTS: 1. Biparietal Diameter: 8.9 cm; 36.0 wks 2. Head Circumference: 31.9 cm; 36.0 wks 3. Abdominal Circumference: 30.8 cm; 34.6 wks 4. Femur Length: 7.2 cm; 36.5 wks 5. Heart Rate: 155 beats per minute WEIGHT: EFW: 2726 grams (6 lbs 0 oz) -- 12 %. BIOPHYSICAL PROFILE: Motion: 2 Tone: 2 Breathin Amniotic Fluid: 2 Total score: 8/8 Umbilical Doppler showed SD ratio of 2.3 which is within normal limits. GESTATIONAL AGE: 1. Established GA: 37.6 wks 2. GA from A: 35.6 wks ESTIMATED DATE OF DELIVERY: 1. Established SHIRA: 12/03/2020 2. SHIRA from [facility]: 12/17/2020 US/US OB follow up IMPRESSION: 1. A single active fetus is in vertex presentation. 2. Size equals dates. Compared to previous exam, there has been appropriate interval growth. 3. Reassuring testing with normal umbilical artery Doppler SD ratio I reviewed today's ultrasound findings and informed her that the interval growth is appropriate. In all likelihood this represents a constitutionally small but healthy fetus who is not experiencing placental insufficiency. testing parameters within normal limits. She informs me that her first 2 children had weights in the 6 pounds range. I recommended that we continue until testing and plan for IOL at approximately 39 weeks of gestation. Thank you very much for this referral. Total time 30 minutes. The time spent was devoted to counseling the patient about the disease and diagnosis, coordinating care including reviewing her records, pertinent lab data and studies, as well as discussing diagnostic evaluation and workup, plan therapeutic interventions and future disposition of care. This includes any additional research needed to obtain further information in formulating the plan of care of this patient. This note was generated with a voice recognition program. Please excuse any errors which may have been overlooked during my review of this note. Sometimes these errors may affect the content or meaning of a given sentence.
== END 2020-11-18 11:18 | disposition home or self-care (01) ==
LOC: HO.US 11:17
PROVIDERS: Visit Provider Obstetrics & Gynecology
DX: O36.5930 Maternal care for other known or suspected poor fetal growth, third trimester, not applicable or unspecified (principal); Z3A.37 37 weeks gestation of pregnancy
CPT/HCPCS: 59025; 76816; 76820; 99212

== ENCOUNTER 2020-11-18 11:28 | Outpatient (REF) | payer MEDICAID, SELFPAY | END 2020-11-18 11:29 | disposition home or self-care (01) | LOC: HO.LNP 11:28 | PROVIDERS: Visit Provider Obstetrics & Gynecology | DX: Z34.83 Encounter for supervision of other normal pregnancy, third trimester (principal) | CPT/HCPCS: 87081; 87147 ==

== ENCOUNTER 2023-04-12 13:47 | Outpatient (AMB) | payer MEDICAID, SELFPAY ==
[2023-04-12 13:56] VITALS: BMI 32.1
--- NOTE | 2023-04-12 13:56 | MHC.OFFVIS ---
Intake Vital Signs 04/12/23 13:56 Height 5 ft 3 in Weight 181 lb BMI 32.1 Intake Visit Reasons: Consults [place] Hand Required: No Allergies No Known Allergies [No Known Allergies*] Allergy (Verified 04/12/23 13:56) Medication List - Last Reconciled 04/12/23 by Ciera Fisher CNM No Known Home Meds Is last menstrual period known: No (not sure of LMP) Post menopausal: No Patient : Yes HPI Consults HPI Details Patient is here because she discovered she is , this is unplanned but she does not believe in for herself so she will continue the . She has been nauseous and spit up maybe 2 or 3 times. Her breasts were also tender. She had a miscarriage about 3 months ago she barely knew she was at the time. She is in shock. She is not really involved with the person who is the father of this .. She has her 3 girls and she has support from her mother and grandmother. Her middle child has autism is a handful. She does not have transportation and walks everywhere here in [place]. She delivered her 1st child here and her 2nd at [facility] because the birthing center had closed she would prefer to come here for her care I did discuss with her the care can be done here for anyone who does not have any high risk issues but that we would transfer anyone with high risk issues to [facility]. I discussed that there would be at least 2 ultrasounds at [facility] and she says she would figure out of way or a ride from somebody to get there for those but it is too far to go for regular visits. Denies any previous medical problems with her previous pregnancies though she did need to be induced for the last baby because it was not growing as well. Since this is not a generally recurring issues we can see how this goes. She walks everywhere and had to walk here today and it was very hot out so I am scheduling/requesting a quant HCG today and repeated on Saturday and she can have an ultrasound next week to assess for dating. She had some little twinges in her lower abdomen but they were after walking long distances. I told her for any emergencies we would have her go to [facility]. [facility] Medical History Obesity affecting ADHD Asthma Surgical History History of ear surgery Family History (Updated 04/12/23 @ 13:58 by CHOLO Galeana) Mother Hx of seizure disorder History of bipolar disorder Father No problems noted. Brother No problems noted. Brother No problems noted. Family/Other Colon cancer Social History Household Members: Children Both parents involved: No Caregiver staying overnight: No Are you a primary personal care service provider to a significant other at home: Yes Do you presently have visiting nurse or other home services: No 75 years or older and lives alone: No Patient Tobacco Use Status: Current everyday Tobacco user Cigarettes Per Day: 4 Substance Use Type: Marijuana Female Reproductive History Menstrual Age of Menarche: 5 Duration of menses: 3-5 days control method: none Total pregnancies: 5 Full term: 3 Number of Living Children: 3 Ab spontaneous: 1 Physical Exam Vital Signs: BMI result Body Mass Index 32.1 Results AMB Test Urine AMB Test Urine Positive Last Edit by CHOLO Galeana on 04/12/23 14:03 Assessment & Plan Assessment & Plan (1) Positive urine test: Comment: Status post SAB 3 months ago, no menses since.... Recent symptoms Code(s): Z32.01 - Encounter for test, result positive Plan Patient is here because she discovered she is , this is unplanned but she does not believe in for herself so she will continue the . She has been nauseous and spit up maybe 2 or 3 times. Her breasts were also tender. She had a miscarriage about 3 months ago she barely knew she was at the time. She is in shock. She is not really involved with the person who is the father of this .. She has her 3 girls and she has support from her mother and grandmother. Her middle child has autism is a handful. She does not have transportation and walks everywhere here in [place]. She delivered her 1st child here and her 2nd at [facility] because the birthing center had closed she would prefer to come here for her care I did discuss with her the care can be done here for anyone who does not have any high risk issues but that we would transfer anyone with high risk issues to [facility]. I discussed that there would be at least 2 ultrasounds at [facility] and she says she would figure out of way or a ride from somebody to get there for those but it is too far to go for regular visits. Denies any previous medical problems with her previous pregnancies though she did need to be induced for the last baby because it was not growing as well. Since this is not a generally recurring issues we can see how this goes. She walks everywhere and had to walk here today and it was very hot out so I am scheduling/requesting a quant HCG today and repeated on Saturday and she can have an ultrasound next week to assess for dating. She had some little twinges in her lower abdomen but they were after walking long distances. I told her for any emergencies we would have her go to [facility]. Orders: Orders AMB HCG Urine Test Today Z32.01 - Encounter for test, result positive HCG Quantitative Today Z32.01 - Encounter for test, result positive HCG Quantitative Today Z32.01 - Encounter for test, result positive HCG Quantitative Today Z32.01 - Encounter for test, result positive US OB <= 14 weeks fetus Today Z32.01 - Encounter for test, result positive Coding Level of Care Code Est Pt Level 3 (55363) Diagnoses Positive urine test Z32.01
== END 2023-04-12 14:31 | disposition home or self-care (01) ==
PROVIDERS: Visit Provider Advanced Practice Midwife
DX: Z32.01 Encounter for pregnancy test, result positive (principal)
CPT/HCPCS: 99213

== ENCOUNTER 2023-04-12 13:47 | Outpatient (REF) | payer MEDICAID, SELFPAY ==
[2023-04-12 16:35] LABS: HCG Quantitative 14067 mIU/mL
== END 2023-04-12 13:48 | disposition home or self-care (01) ==
LOC: HO.LAB 13:47
PROVIDERS: Visit Provider Advanced Practice Midwife
DX: Z32.01 Encounter for pregnancy test, result positive (principal)
CPT/HCPCS: 36415; 81025; 84702; 99212

== ENCOUNTER 2023-04-19 15:47 | Outpatient (REF) | payer MEDICAID, SELFPAY ==
--- NOTE | ~2023-04-19 | US_ITS ---
EXAMINATION: US OBSTETRICAL ULTRASOUND CLINICAL INFORMATION: Encounter for test, results positive HCG 14,067 COMPARISON: None available. TECHNIQUE: Transvaginal scanning was performed. FINDINGS: There is a single intrauterine gestational sac with visible yolk sac, embryo/fetus, and cardiac activity. There is no significant subchorionic hemorrhage or hematoma. HR: 172 beats per minute. CRL (crown rump length): 1.87 cm (8 weeks 3 days +/- 4 days). SHIRA (estimated date of delivery): 11/26/2023 +/- 4 days. MATERNAL ADNEXA: The right maternal ovary measures 3.5 x 2.4 x 2.8 cm. The right ovary is normal in appearance. The left maternal ovary measures 2.9 x 2.0 x 2.4 cm. 1.4 x 1.6 x 1.4 cm corpus luteum is seen. No follow-up imaging of this finding is recommended. There is no significant maternal adnexal mass. No maternal pelvic ascites. US/US OB <= 14 weeks fetus IMPRESSION: 1. Single intrauterine gestation with ultrasound gestational age of 8 weeks 3 days +/- 4 days. 2. Estimated date of delivery is 11/26/2023 +/- 4 days. 3. No maternal adnexal mass or pelvic ascites.
== END 2023-04-19 15:48 | disposition home or self-care (01) ==
LOC: HO.US 15:47
PROVIDERS: Visit Provider Advanced Practice Midwife
DX: Z34.91 Encounter for supervision of normal pregnancy, unspecified, first trimester (principal)
CPT/HCPCS: 76801

== ENCOUNTER 2023-05-29 13:25 | Emergency (ER) | payer MEDICAID, SELFPAY ==
--- NOTE | ~2023-05-29 | US_ITS ---
Examination: Ultrasound OB limited. CLINICAL INDICATION: Pelvic pain. 14 weeks . COMPARISON: Ultrasound 04/23/2023 TECHNIQUE: Transabdominal imaging of pelvis is performed. FINDINGS: There is a single intrauterine fetus with a heart rate of 167 bpm. There is adequate amniotic fluid. On measurements, BPD measures 2.73 cm corresponding to 14 week 16 days, Occipital frontal diameter measures 3.58 cm corresponding to 14 weeks and 5 days, Head circumference measures 10.0 cm corresponding to 14 weeks and 5 days, Abdominal circumference measures 7.94 cm corresponding to 14 weeks and 3 days, Femur length measures 1.33 cm corresponding to 14 weeks and 0 days. Estimated weight is 0 pounds and 3 ounces corresponding to 92 percentile. Gestational age from today's measurements is 14 weeks 4 days and from earliest ultrasound 14 weeks 1 day. Estimated date of delivery from today's measurements 11/23/2023. The placenta is posterior and appears unremarkable. Visualized both ovaries are normal. US/US OB limited IMPRESSION: Single live intrauterine fetus measuring 14 weeks 4 days by today's ultrasound measurements. SHIRA by today's measurements is 11/23/2023.
--- NOTE | 2023-05-29 14:39 | ED_ITS ---
HPI - General Adult General Chief complaint: General Medical Stated complaint: 14 Weeks Flu Like Symptoms Time Seen by Provider: 05/29/23 18:56 History of Present Illness HPI narrative: Left before completion of treatment by ED provider Related Data Home Medications Medication Instructions Recorded Confirmed No Known Home Meds 04/12/23 04/12/23 Allergies Allergy/AdvReac Type Severity Reaction Status Date / Time No Known Allergies Allergy Verified 04/12/23 13:56 [No Known Allergies*] PMFSH Past Medical History Medical History Obesity affecting ADHD Asthma Surgical History History of ear surgery Family History Family History (Updated 04/12/23 @ 13:58 by CHOLO Galeana) Mother Hx of seizure disorder History of bipolar disorder Father No problems noted. Brother No problems noted. Brother No problems noted. Family/Other Colon cancer Social History Social History (Updated 04/12/23 @ 13:58 by CHOLO Galeana) Household Members: Children Are you a primary respiratory care practitioner to a significant other at home: Yes Do you presently have visiting nurse or other home services: No Patient Tobacco Use Status: Current everyday Tobacco user Cigarettes Per Day: 4 Substance Use Type: Marijuana Advance Directives: No Advance Directives Information Provided: No Physical Exam ED Vital Signs: Vital Signs - 24 hr 05/29/23 14:42 Temperature 98.1 F Pulse Rate 81 Respiratory Rate 17 Blood Pressure 121/68 Pulse Oximetry 99 Oxygen Delivery Method Room Air BMI result Body Mass Index 32.3 Course Course Course Narrative: RME: 22 yold female presents to the ED for sore nausea, vomitting, dry mouth. Patient is 14 weeks y. patient denies any abdominal pain, vaginal bleeding, or vaginal spotting. labs, SARS ordered . 5:51pm: patient now stating pelvic pain. pregnnacy ultrasound dordered. Medications Administered Discontinued Medications Generic Name Dose Route Start Last Admin Trade Name Freq PRN Reason Stop Dose Admin Acetaminophen 975 mg 05/29/23 17:47 05/29/23 17:49 Acetaminophen 325 Mg Tablet PO 05/29/23 17:48 975 mg ONCE ONE Administration Medical Decision Making Lab Data 05/29/23 14:54 05/29/23 14:54 Labs: Lab Results 05/29/23 Range/Units 14:54 WBC 11.5 H (4.8-10.8) X10*3/uL RBC 3.95 L (4.20-5.50) X10*6/uL Hgb 12.0 (12.0-16.0) g/dl Hct 34.7 L (37.0-47.0) % MCV 87.8 (80.0-98.0) fL MCH 30.4 (27.0-33.0) pg MCHC 34.6 (31.0-35.0) g/dl RDW 13.2 (11.0-16.0) % Plt Count 262 (160-400) X10*3/uL MPV 9.7 (9.4-12.3) fL Immature Gran % (Auto) 0.4 (0.0-0.4) % Neut % (Auto) 88.8 H (45-73) % Lymph % (Auto) 4.4 L (20-40) % [place] % (Auto) 4.4 (2-11) % Eos % (Auto) 1.7 (0-4) % Baso % (Auto) 0.3 (0-2) % Lymph # (Auto) 0.5 L (1.2-4.9) X10*3/uL [place] # (Auto) 0.5 (0.1-1.2) X10*3/uL Eos # (Auto) 0.2 (0.0-0.4) X10*3/uL Baso # (Auto) 0.0 (0.0-0.2) X10*3/uL Abs Immat Gran (auto) 0.05 H (0.00-0.03) X10*3/uL Absolute Neuts (auto) 10.2 H (2.0-8.3) x10*3/uL Absolute Nucleated RBC 0.000 (0.0-0.012) X10*3/uL Nucleated RBC % (auto) 0.0 (0.0-0.2) /100WBC PT 11.2 (11.1-13.3) SEC INR 0.9 (0.9-1.1) APTT 28.7 (26.0-36.4) SEC Sodium 135 (135-145) mmol/L Potassium 4.2 (3.3-5.1) mmol/L Chloride 106 (96-108) mmol/L Carbon Dioxide 24 (22-29) mmol/L Anion Gap 9 L (12-20) BUN 9 (9-16) mg/dL Creatinine 0.63 (0.5-1.4) mg/dL Estim Creat Clear Calc 135.1 Estimated GFR > 60 Random Glucose 77 (60-115) mg/dL Calcium 8.7 D (8.4-10.2) mg/dL Total Bilirubin 0.2 (0.0-1.0) mg/dL AST 15 (5-31) U/L ALT 10 (0-31) U/L Alkaline Phosphatase 51 (39-117) U/L Total Protein 6.6 (6.5-8.0) g/dL Albumin 3.4 L (3.5-5.0) g/dL Beta HCG, Quant 74537 mIU/mL Urine Color Yellow Urine Appearance Clear Urine pH 7.0 (5.0-9.0) Ur Specific [place] 1.025 (1.005-1.025) Urine Protein Negative (Neg-Trace) mg/dL Urine Glucose (UA) Negative (Negative) mg/dL Urine Ketones Negative (Negative) mg/dL Urine Blood Negative (Negative) Urine Nitrite Negative (Negative) Ur Leukocyte Esterase Negative (Negative) Urine Test POSITIVE H (NEGATIVE) Influenza Type A (PCR) NEGATIVE (Negative) Influenza Type B (PCR) NEGATIVE (Negative) RSV RNA Qual (PCR) NEGATIVE (Negative) SARS-CoV-2 RNA (RT-PCR) NEGATIVE (Negative) Blood Type O Positive Discharge Plan Discharge Clinical Impression: Patient Disposition: Left W/O Completing Treatment Prescriptions: No Action flu vacc [id number] 6mos up(PF) 60 mcg (15 mcg x 4)/0.5 mL syringe 0.5 ml IM ONCE Qty: 0.5 0RF No Known Home Meds Discharge Date/Time: 05/29/23 20:38
[2023-05-29 14:42] VITALS: BP 121/68; PULSE 81; RESP 17; TEMP 36.7; O2SAT 99; BMI 32.3
[2023-05-29 15:01] LABS: MANUAL DIFF FLAG NO
[2023-05-29 15:03] LABS: Basophils Percent Auto 0.3 % (0-2); Eosinophils Absolute Auto 0.2 X10*3/uL (0.0-0.4); Eosinophils Percent Auto 1.7 % (0-4); Hematocrit 34.7 % (37.0-47.0); Imm Gran Abs Auto 0.05 X10*3/uL (0.00-0.03); Imm Gran Pct Auto 0.4 % (0.0-0.4); Lymphocytes Absolute Auto 0.5 X10*3/uL (1.2-4.9); Lymphocytes Percent Auto 4.4 % (20-40); Mean Corpuscular HGB Conc 34.6 g/dl (31.0-35.0); Mean Corpuscular Hemoglobin 30.4 pg (27.0-33.0); Mean Corpuscular Volume 87.8 fL (80.0-98.0); Mean Platelet Volume 9.7 fL (9.4-12.3); Monocytes Absolute Auto 0.5 X10*3/uL (0.1-1.2); Monocytes Percent Auto 4.4 % (2-11); Neutrophils Absolute Auto 10.2 x10*3/uL (2.0-8.3); Neutrophils Percent Auto 88.8 % (45-73); Platelet Count 262 X10*3/uL (160-400); Red Blood Count 3.95 X10*6/uL (4.20-5.50); Red Cell Distribution Width 13.2 % (11.0-16.0); White Blood Count 11.5 X10*3/uL (4.8-10.8)
[2023-05-29 15:04] LABS: UPreg QC Valid YES; Urine Pregnancy POSITIVE (NEGATIVE)
[2023-05-29 15:05] LABS: Appearance Urine Clear; Color Urine Yellow; Glucose Urine UA Negative (Negative); Leukocyte Esterase Urine Negative (Negative); Nitrite Urine Negative (Negative); Specific Gravity - Urine 1.025 (1.005-1.025); Urine Blood Negative (Negative); Urine Ketones Negative (Negative); Urine Protein Negative (Neg-Trace)
[2023-05-29 15:27] LABS: INTERNATIONAL NORM RATIO 0.9 (0.9-1.1); Prothrombin Time 11.2 SEC (11.1-13.3)
[2023-05-29 15:28] LABS: Alanine Aminotransferase 10 U/L (0-31); Albumin Level 3.4 g/dL (3.5-5.0); Alkaline Phosphatase 51 U/L (39-117); Anion Gap 9 (12-20); Aspartate Amino Transferase 15 U/L (5-31); Bilirubin Total 0.2 mg/dL (0.0-1.0); Blood Urea Nitrogen 9 mg/dL (9-16); Calcium 8.7 mg/dL (8.4-10.2); Carbon Dioxide 24 mmol/L (22-29); Chloride 106 mmol/L (96-108); Creatinine Clr Calc Pharmacy 135.1; Estimated Glomerular Filt Rate > 60; Glucose Random 77 mg/dL (60-115); Potassium 4.2 mmol/L (3.3-5.1); Sodium 135 mmol/L (135-145); Total Protein 6.6 g/dL (6.5-8.0)
[2023-05-29 15:30] LABS: Partial Thromboplastin Time 28.7 SEC (26.0-36.4)
[2023-05-29 15:59] LABS: Influenza A PCR NEGATIVE (Negative); Influenza B PCR NEGATIVE (Negative); Resp Syncy Virus RNA Qual PCR NEGATIVE (Negative); SARS COV2 PCR INHOUSE NEGATIVE (Negative)
[2023-05-29] MEDS: Acetaminophen 325 MG TABLET 975 MG PO (17:49)
[2023-05-29 18:57] VITALS: BP 107/62; PULSE 81; RESP 18; O2SAT 97
--- NOTE | 2023-05-29 19:23 | PC.NURSE ---
Called from waiting room multiple times at 19:22, no response. Attempted to call ultrasound extension to determine if patient is currently in ultrasound, without response. Will re-attempt contact.
--- NOTE | 2023-05-29 20:37 | PC.NURSE ---
Patient states that they want to leave the ED. States that they are hungry and tired of waiting. States that symptoms have improved other than occasional dry heaving. Left without completing treatment. Provider (PAULO Hidalgo) aware.
== END 2023-05-29 20:38 | disposition left against medical advice (07) ==
PROVIDERS: Physician Assistant; Emergency Provider Emergency Medicine
DX: O26.892 Other specified pregnancy related conditions, second trimester (principal); R10.2 Pelvic and perineal pain; R11.2 Nausea with vomiting, unspecified; O99.332 Smoking (tobacco) complicating pregnancy, second trimester; F17.210 Nicotine dependence, cigarettes, uncomplicated; Z3A.14 14 weeks gestation of pregnancy; Z20.822 Contact with and (suspected) exposure to COVID-19; Z20.828 Contact with and (suspected) exposure to other viral communicable diseases
CPT/HCPCS: 0241U; 36415; 76815; 80053; 81003; 81025; 84702; 85025; 85610; 85730; 86900; 86901; 99283; 99284

== ENCOUNTER 2024-06-09 13:52 | Outpatient (AMB) | payer MEDICAID, SELFPAY ==
--- NOTE | 2024-06-09 13:56 | MHC.OFFVIS ---
Intake Visit Reasons: Hemorrhoids Intake Note: This patient presents for hemorrhoids. Pt c/o; reports occasional rectal bleeding. Ct Manager Required: No Accompanied by: Self / Same As Patient Allergies No Known Allergies [No Known Allergies*] Allergy (Verified 06/09/24 13:59) HPI Comments Details: Patient presents with a longstanding history of symptomatic internal and external hemorrhoids. She complains of pain, swelling, prolapsing with manual reduction, and occasional spotty bleeding. This has been going on since her pregnancies. They have continued over the last several months time and actually have progressed. Patient has a history of constipation/hard stool. She denies any anal receptive practice. Chart was reviewed and patient evaluated [facility] Medical History Obesity affecting ADHD Asthma Surgical History History of ear surgery Family History Mother Hx of seizure disorder History of bipolar disorder Father No problems noted. Brother No problems noted. Brother No problems noted. Family/Other Colon cancer Social History Household Members: Children Both parents involved: No Caregiver staying overnight: No Are you a primary vp care management to a significant other at home: Yes Do you presently have visiting nurse or other home services: No 75 years or older and lives alone: No Patient Tobacco Use Status: Current everyday Tobacco user Cigarettes Per Day: 4 Substance Use Type: Marijuana Female Reproductive History Menstrual Age of Menarche: 5 Physical Exam Chest Other: Chest breath sounds bilaterally, HS 1 in 2 GI Other: Abdomen Michael, soft, benign. Anorectal exam demonstrates extensive internal and external hemorrhoids. Rectal exam was deferred secondary to patient's discomfort. Assessment & Plan Assessment & Plan (1) Hemorrhoid prolapse: Code(s): K64.8 - Other hemorrhoids Category: Surgical Plan Patient would like to have these excised/removed. Risks, benefits, alternatives of hemorrhoidectomy were reviewed with the patient and included but not limited to bleeding, infection, recurrence, numbness, pain, scarring, incontinence and the patient wishes to proceed. All questions answered. She will receive magnesium citrate many bowel prep day prior. All questions answered. Arrangements were made for this. Coding Level of Care Code New Pt Level 5 (02317) Diagnoses Hemorrhoid prolapse K64.8
== END 2024-06-09 14:11 | disposition home or self-care (01) ==
LOC: HO.HGS 13:53
PROVIDERS: PCP General Practice; Visit Provider Surgery
DX: K64.8 Other hemorrhoids (principal)
CPT/HCPCS: 99204

== ENCOUNTER → 2024-06-09 13:52 | Outpatient (BNVA) | payer MEDICAID, SELFPAY | PROVIDERS: PCP General Practice; Visit Provider Surgery | DX: K64.8 Other hemorrhoids (principal) | CPT/HCPCS: 99202 ==

== ENCOUNTER 2024-07-17 09:05 | Day surgery (SDC) | payer MEDICAID, SELFPAY ==
[2024-07-17 09:31] VITALS: BMI 37.4
[2024-07-17 09:47] LABS: UPreg QC Valid YES; Urine Pregnancy NEGATIVE (NEGATIVE)
[2024-07-17 09:57] VITALS: BP 119/82; PULSE 65; RESP 16; TEMP 37; O2SAT 100
[2024-07-17] MEDS: Lactated Ringers 1,000 ML 100 ML IVCONT (10:14)
--- NOTE | 2024-07-17 10:45 | HO.ANESPROP2 ---
Documented by User: Mary Cody NP 07/16/24 13:07 HPI - Anesthesia Eval Consult details Narrative: 24yo F for Hemorrhoidectomy PMFSH Active Problems Active Problems: All Active Problems Hemorrhoid prolapse (Acute) Positive urine test (Acute) growth retardation, (Acute) IUGR (intrauterine growth restriction) (Acute) growth restriction (Acute) Obesity affecting (Acute) Supervision of other normal (Acute) Placenta previa (Acute) (Acute) Past Medical History Medical History Obesity affecting ADHD Asthma Family History Family History Mother Hx of seizure disorder History of bipolar disorder Father No problems noted. Brother No problems noted. Brother No problems noted. Family/Other Colon cancer Surgical History Surgical History History of ear surgery Social History Social History Household Members: Children Are you a primary health care coach to a significant other at home: Yes Do you presently have visiting nurse or other home services: No Patient Tobacco Use Status: Current everyday Tobacco user Tobacco use type: Cigarette Cigarettes Per Day: 4 Use of substances other than those prescribed or required for medical reasons: No Substance Use Type: Marijuana Are you DNR?: No Advance Directives: No Advance Directives Information Provided: Yes Recently lost weight without trying: No Nutrition Risks: No Nutritional Risk Meds Allergies Allergy/AdvReac Type Severity Reaction Status Date / Time No Known Allergies Allergy Verified 06/09/24 13:59 [No Known Allergies*] Home Medications ?Medication ?Instructions ?Recorded ?Confirmed ?Last Taken ?Type dextroamphetamine-amphetamine ER 1 cap PO QAM 06/09/24 07/17/24 07/17/24 History 20 mg 24hr capsule,extend release (Adderall XR) ferrous sulfate 325 mg (65 mg 325 mg PO DAILY 06/09/24 07/17/24 07/17/24 History iron) tablet,delayed release Assessment and Plan Assessment Anesthesia Assessment: Chart Reviewed Documented by User: Jane Rhodes DO 07/17/24 10:45 HPI - Anesthesia Eval Consult details Narrative: 24yo F for Hemorrhoidectomy. Smoker. COUNTS INCLUDE 234 BEDS AT THE [facility] Past Medical History Medical History Obesity affecting ADHD Asthma Family History Family History Mother Hx of seizure disorder History of bipolar disorder Father No problems noted. Brother No problems noted. Brother No problems noted. Family/Other Colon cancer Family history of problems with anesthesia: No Surgical History Surgical History History of ear surgery History of Problems with Anesthesia: No Social History Social History Household Members: Children Are you a primary health care coach to a significant other at home: Yes Do you presently have visiting nurse or other home services: No Patient Tobacco Use Status: Current everyday Tobacco user Tobacco use type: Cigarette Cigarettes Per Day: 4 Use of substances other than those prescribed or required for medical reasons: No Substance Use Type: Marijuana Are you DNR?: No Advance Directives: No Advance Directives Information Provided: Yes Recently lost weight without trying: No Nutrition Risks: No Nutritional Risk Meds Allergies Allergy/AdvReac Type Severity Reaction Status Date / Time No Known Allergies Allergy Verified 06/09/24 13:59 [No Known Allergies*] Home Medications ?Medication ?Instructions ?Recorded ?Confirmed ?Last Taken ?Type dextroamphetamine-amphetamine ER 1 cap PO QAM 06/09/24 07/17/24 07/17/24 History 20 mg 24hr capsule,extend release (Adderall XR) ferrous sulfate 325 mg (65 mg 325 mg PO DAILY 06/09/24 07/17/24 07/17/24 History iron) tablet,delayed release Exam Exam Date and Time: 07/17/24 1044 Height,Weight and Vital Signs: Height 5 ft 2 in Weight 92.703 kg Vital Signs Temperature 98.6 F 07/17/24 09:57 Pulse Rate 65 07/17/24 09:57 Respiratory Rate 16 07/17/24 09:57 Blood Pressure 119/82 07/17/24 09:57 Pulse Oximetry 100 07/17/24 09:57 Oxygen Delivery Method Room Air 07/17/24 09:57 Temperature 98.6 F 07/17/24 09:57 Pulse Rate 65 07/17/24 09:57 Respiratory Rate 16 07/17/24 09:57 Blood Pressure 119/82 07/17/24 09:57 Pulse Oximetry 100 07/17/24 09:57 Oxygen Delivery Method Room Air 07/17/24 09:57 Airway Mallampati Class: I TM Dist: >3cm Neck ROM: Full Loose/Missing/Broken Teeth: No (patient denies any loose or broken teeth) Heart: S1S2 Lungs: CTAB Assessment and Plan Assessment Anesthesia Assessment: Anesthesia Plan Discussed and Chart Reviewed Final Anesthetic Review Family History of Problems with Anesthesia: No History of Problems with Anesthesia: No NPO: Yes ASA Class: II Final Preanesthetic Review: No Changes in Pt Med Stat, Meds/Allgs Chart Reviewed, Consent Obtained/Reviewed and Anes Risks/Benef Reviewed Patient Risk: Low Procedure Risk: Low Anesthetic Plan Anesthetic Plan: MAC: and Agree w/ Assess. and Plan Disposition: Standard PACU
[2024-07-17 11:40] VITALS: BP 110/66; PULSE 66; RESP 16; TEMP 36.4; O2SAT 100
--- NOTE | 2024-07-17 11:43 | W.PM.OPN ---
Operative Note Operative Note Date of Service: 07/17/24 Narrative: Preoperative diagnosis: [] Symptomatic internal and external hemorrhoids Postop diagnosis: [] The same Procedure [] hemorrhoidectomy Surgeon: [] [employer] Technologist: [] Type of Anesthesia: [] Mac Indication for surgery: [] Large hemorrhoids at the 3, 7, and 11 o'clock position lithotomy. Uneventful excision. Findings: [] Patient brought to the operating room, placed on operative table supine position, after an adequate level of MAC anesthesia was induced, the anorectal area was prepped and draped in usual sterile fashion. Each hemorrhoidal areas noted above was sequentially injected with 0.5% Marcaine/1% lidocaine and transected using double firing of ligature device. The hemorrhoid at the 7 o'clock position quite large and the post excision defect was clipped was reapproximated using interrupted 3-0 chromic sutures. Wound was irrigated, secured hemostasis, and a Gelfoam impregnated with 1% lidocaine plug was placed followed by sterile dressing. Sponge, needle, and instrument counts were reported correct. Patient tolerated the procedure well and emerged from anesthesia stable condition. EBL minimal
[2024-07-17 11:59] VITALS: BP 126/80; PULSE 52; RESP 16; O2SAT 100
[2024-07-17 12:14] VITALS: BP 141/89; PULSE 51; RESP 16; O2SAT 98
[2024-07-17 12:29] VITALS: BP 142/93; PULSE 51; RESP 16; O2SAT 99
[2024-07-17 12:45] VITALS: BP 142/92; PULSE 64; RESP 16; TEMP 36.3; O2SAT 99
== END 2024-07-17 13:14 | disposition home or self-care (01) ==
PROVIDERS: Nurse Practitioner; PCP General Practice; Visit Provider Surgery
PROC: (CPT 46946; principal; 2024-07-17 11:50)
DX: K64.8 Other hemorrhoids (principal); K64.4 Residual hemorrhoidal skin tags; K62.5 Hemorrhage of anus and rectum; K59.00 Constipation, unspecified; J45.909 Unspecified asthma, uncomplicated; F90.9 Attention-deficit hyperactivity disorder, unspecified type; Z79.899 Other long term (current) drug therapy; F17.210 Nicotine dependence, cigarettes, uncomplicated
CPT/HCPCS: 46946; 81025; 88304; J0690; J1100; J1885; J2003; J2250; J2405; J2704; J3010

== ENCOUNTER → 2024-07-17 09:05 | Outpatient (BNV) | payer MEDICAID, SELFPAY | PROVIDERS: PCP General Practice; Visit Provider Surgery | DX: K64.8 Other hemorrhoids (principal) | CPT/HCPCS: 46260 ==